=== PATIENT | male | born 1980 | race Caucasian/White ===

== ENCOUNTER 2020-08-01 10:25 | Emergency (ER) | payer OTHER ==
[~2020-08-01] VITALS: Ht 175.3 cm; Wt 79.4 kg
--- NOTE | 2020-08-01 10:25 | NUR ---
PT BIB SELF C/O LOWER BACK PAIN FOR 4 DAYS. PT IS AAOX4, NOT IN RESPIRATORY DISTRESS, V/S STABLE. KEPT RESTED AND COMFORTABLE. WILL CONTINUE TO MONITOR.
--- NOTE | 2020-08-01 10:34 | NUR ---
AT BEDSIDE FOR EVAL.
--- NOTE | 2020-08-01 10:44 | NUR ---
URINE SPECIMEN COLLECTED AND SENT TO LAB.
--- NOTE | 2020-08-01 10:45 | NUR ---
ER PHLEB AT BEDSIDE FOR BLOOD DRAW.
[2020-08-01 11:06] LABS: BASOPHILS # (AUTO) 0.1 /CMM (0.0-0.2); BASOPHILS % (AUTO) 0.6 % (0.0-2.0); EOSINOPHILS % (AUTO) 2.3 % (0.0-6.0); HEMATOCRIT 50 % (39-51); HEMOGLOBIN 16.8 g/dL (13.5-17.5); LYMPHOCYTES # (AUTO) 2.2 /CMM (0.8-4.8); LYMPHOCYTES % (AUTO) 24.3 % (20.0-44.0); MEAN CORPUSCULAR HGB CONC 33 g/dl (31.0-36.0); MEAN CORPUSCULAR VOLUME 89 fL (80-96); MONOCYTES # (AUTO) 0.6 /CMM (0.1-1.30); NEUTROPHILS # (AUTO) 5.8 /CMM (1.8-8.9); NEUTROPHILS % (AUTO) 65.8 % (43.0-81.0); PLATELET COUNT (AUTO) 291 /CMM (150-450); RED BLOOD CELL COUNT(AUTO) 5.66 MIL/uL (4.5-6.0); WHITE BLOOD COUNT (AUTO) 8.9 K/uL (4.3-11.0)
[2020-08-01 11:08] LABS: BILIRUBIN,URINE NEGATIVE (NEGATIVE); COLOR,URINE YELLOW (YELLOW); LEUKOCYTE ESTERASE ,URINE NEGATIVE (NEGATIVE); NITRITE, URINE NEGATIVE (NEGATIVE); PH,URINE 5.5 (5.0-8.0); PROTEIN,URINE NEGATIVE (NEGATIVE); UGLUCOSE NEGATIVE (NEGATIVE); UROBILINOGEN,URINE 0.2 EU/dL (0.2)
[2020-08-01 11:16] LABS: ALBUMIN 3.7 g/dL (3.4-5.0); BILIRUBIN,DIRECT 0.1 mg/dL (0.0-0.2); BILIRUBIN,TOTAL 0.4 mg/dL (0.2-1.0); CALCIUM, SERUM 9.5 mg/dL (8.5-10.1); CREATININE 1.1 mg/dL (0.6-1.3); POTASSIUM 4.4 mmol/L (3.5-5.1)
[2020-08-01 11:29] LABS: BACTERIA,URINE Rare /HPF (None Seen); SQUAMOUS EPITHELIAL CELL,UR Rare /HPF (None Seen); WBC,URINE 0-2 /HPF (0-3)
[2020-08-01] MEDS ORDERED: CARI350T PO (11:29)
[2020-08-01 11:38] VITALS: BP 118/84
--- NOTE | 2020-08-01 11:38 | NUR ---
Patient discharged to home in stable condition. Written and verbal after care instructions given. Patient verbalizes understanding of instruction.
== END 2020-08-01 11:39 | disposition home or self-care (01) ==
LOC: ER 10:25
DX: R10.9 Unspecified abdominal pain (principal); Z79.899 Other long term (current) drug therapy
CPT/HCPCS: 36415; 80048-TC; 80076-TC; 81001; 83690-TC; 85025-TC

== ENCOUNTER 2021-09-17 09:00 | Emergency (ER) | payer OTHER ==
[~2021-09-17] VITALS: Ht 170.2 cm; Wt 89.4 kg
[~2021-09-17 09:00] MED LIST: CARI350T PO
[2021-09-17 09:05] VITALS: BP 113/75
[2021-09-17] MEDS ORDERED: CARI350T PO (09:14)
--- NOTE | 2021-09-17 09:14 | NUR ---
SEEN AND EXAMINED BY .
--- NOTE | 2021-09-17 09:19 | NUR ---
Patient discharged to home in stable condition. Written and verbal after care instructions given. Patient verbalizes understanding of instruction.
== END 2021-09-17 09:20 | disposition home or self-care (01) ==
LOC: ER 09:01
DX: M54.9 Dorsalgia, unspecified (principal); G89.29 Other chronic pain; Z79.899 Other long term (current) drug therapy

== ENCOUNTER 2021-10-08 08:19 | Emergency (ER) | payer OTHER ==
[~2021-10-08] VITALS: Ht 170.2 cm; Wt 90.7 kg
--- NOTE | 2021-10-08 08:24 | NUR ---
BIB FAMILY C/O BACK PAIN SINCE FRIDAY, DENIES INJURY. PT TOOK [employer] [employer] AND CURRENTLY HAS 5/10 PAIN ON PAIN SCALE, STATED PRIOR TO [facility] 8/10 PAIN. VITALSARE WITHIN NORMAL LIMITS, NO RESPIRATORY DISTRESS NOTED.
[2021-10-08] MEDS ORDERED: KETOROLAC TROMETHAMINE 15 MG/ML VIAL ONE (08:44)
--- NOTE | 2021-10-08 08:54 | NUR ---
X RAY AT BEDSIDE
[2021-10-08] MEDS ORDERED: KETOROLAC TROMETHAMINE INJ 30 MG/ML VIAL IM ONE (09:00)
[2021-10-08] MEDS ORDERED: IBUP-1955 PO ×2 (09:36→09:48)
[2021-10-08] MEDS ORDERED: CYCL5TAB PO (09:37)
[2021-10-08] MEDS ORDERED: CARI350T PO (09:48)
[2021-10-08 09:57] VITALS: BP 111/70
== END 2021-10-08 09:57 | disposition home or self-care (01) ==
LOC: ER 08:27
DX: M54.6 Pain in thoracic spine (principal); Z79.899 Other long term (current) drug therapy
CPT/HCPCS: 71045-TC; J1885